=== PATIENT | male | born 1955 | race Caucasian/White ===

== ENCOUNTER 2020-10-24 16:53 | Outpatient (RCR) | payer OTHER, SELFPAY ==
[2014-07-23 09:14] VITALS: BMI 27.2
[2020-10-24] MEDS: COVID-19 VACC, MRNA(PFIZER)/PF 30 MCG/0.3 ML SYRINGE IM (14:09)
[2020-11-14] MEDS: COVID-19 VACC, MRNA(PFIZER)/PF 30 MCG/0.3 ML SYRINGE IM (14:12)
== END 2020-10-24 23:59 ==
LOC: IMMUN 16:53
PROVIDERS: Visit Provider Family Medicine
DX: Z23 Encounter for immunization (principal)
CPT/HCPCS: 0001A; 0002A; 91300